=== PATIENT | female | born 1980 | race Caucasian/White ===

== ENCOUNTER → 2017-11-25 | Outpatient (REF) | payer BC | LOC: M LAB REF 08:56 | DX: Z12.4 Encounter for screening for malignant neoplasm of cervix (principal) | CPT/HCPCS: G0123 ==

== ENCOUNTER 2019-03-16 14:48 | Inpatient (IN) | payer BC, OTHER, SELFPAY ==
[~2019-03-16] VITALS: Ht 154.9 cm; Wt 85.5 kg
[~2019-03-16 14:48] MED LIST: ACYC400T PO; IBUP80TA PO; PNV-CAP5 PO
[2019-03-16] MEDS ORDERED: ACETAMINOPHEN TAB 650MG DOSE (2X325MG) PO PRN (15:00)
[2019-03-16] MEDS ORDERED: KETOROLAC 30 MG/ML VIAL (J1885) IV PRN (15:00)
[2019-03-16] MEDS ORDERED: ONDANSETRON 4MG/2ML VIAL (J2405) IV PRN (15:00)
[2019-03-16 18:21] VITALS: BP 164/102
[2019-03-16 18:22] VITALS: BP 138/70
[2019-03-16] MEDS: NS 1,000 ML IV SCH ×2 (18:30→22:55)
[2019-03-16] MEDS: PIPERACILLIN/TAZOBACTAM SOD 3.375 GM in D5W MINI-BAG PLUS 50 ML IV SCH (20:11)
[2019-03-16] MEDS: HEPARIN SOD (PORCINE) 5000 UNITS/ML VIAL SC SCH (22:00)
[2019-03-16 22:25] VITALS: BP 119/70
[2019-03-17] MEDS: PIPERACILLIN/TAZOBACTAM SOD 3.375 GM in D5W MINI-BAG PLUS 50 ML IV SCH ×4 (02:09→20:06)
[2019-03-17] MEDS: HEPARIN SOD (PORCINE) 5000 UNITS/ML VIAL SC SCH ×3 (05:51→21:01)
[2019-03-17 06:38] VITALS: BP 115/74
[2019-03-17] MEDS: NS 1,000 ML IV SCH ×3 (09:29→20:06)
[2019-03-17] MEDS: PANTOPRAZOLE 40MG INJ (PROTONIX) (C9113) IV SCH (09:30)
[2019-03-17 14:00] VITALS: BP_SYST 123; BP_SYST 131; BP_DIAS 76; BP_DIAS 81
--- NOTE | 2019-03-17 15:00 | HPEPDOC ---
General Surgery H&P Date of Admission Mar 16, 2019 Attending Physician: ALONDRA VELÁSQUEZ DO History and Physical CHIEF COMPLAINT: Lower abdominal pain HISTORY OF PRESENT ILLNESS: Sue is a 38-year-old female who was a direct admission after being transferred from [facility] with imaging findings suggestive of a small bowel obstruction. On Wednesday night into morning (03/15-03/16), patient reports she had concentrated lower midline abdominal pain and bloating with "nine to ten" episodes of non-bloody emesis and accompanying chills. Patient simply could not get comfortable throughout the night and did not sleep. She subsequently presented to the [facility] ED on morning where a CT abdomen/pelvis with IV contrast only showed findings suggestive of a small bowel obstruction. Per [place] [facility], patient's abdominal pain and bloating significantly improved throughout the day yesterday, and her last episode of emesis occurred around 0930 yesterday. Patient had reported pertinent lab findings at [place] of lactate of 2.4 and CO2 of 17. General surgery coverage at [place] ceases early this afternoon (03/17), so in the interest of good con tinuity of care, decision was made to transfer the patient to [facility] for continued evaluation and monitoring. Patient arrived to [facility] yesterday evening and NG tube was placed along with orders for NPO except sips and ice chips, Zosyn, Zofran, Toradol, Acetaminophen, and Protonix. Patient reports this morning that her current abdominal pain is 1/10 and that whenever her NG tube is detached so she can ambulate to the bathroom, she becomes nauseated. The nausea subsequently subsides when the NG tube is re-attached. Patient's last BM was "minimal" and occurred yesterday morning. She denies flatus but has had a few small burps. Patient is currently on her period and states that she has a history of menstrual cramps, but that her current symptom presentation is distinct and different to that of her typical dysmenorrhea presentation. Patient has never had this type of abdominal presentation before. 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 She denies recent illness other than an UTI in Jan 2019. She denies any recent change in medications. Patient's previous abdominal surgeries are one section and tubal ligation. Overall, the patient feels physically "drained." At this time, the patient denies fever, chills, night sweats, impaired cognition or confusion, chest pain, chest pressure, palpitations, sob, dysuria, or hematuria. ALLERGIES: Please see below. HOME MEDICATIONS: Please see below. PAST MEDICAL HISTORY: Dysmenorrhea PAST SURGICAL HISTORY: One section Tubal ligation Dilation and curettage PERSONAL/SOCIAL HISTORY: Patient is a high school science tutor REVIEW OF SYSTEMS: GENERAL: Denies fever, chills, night sweats CARDIOVASCULAR: Denies chest pain, chest pressure, or palpitations PULMONARY: [Denies chronic cough, dyspnea and wheezing]. GASTROINTESTINAL: Endorses lower abdominal pain and bloating; endorses feeling nauseated when disconnected from NG tube and ambulating; denies vomiting the past 24 hours, and denies hematemesis or coffee ground emesis when vomiting over the previous days GENITOURINARY: Denies dysuria or hematuria PHYSICAL EXAMINATION: VITAL SIGNS: Please see below. GENERAL APPEARANCE: Well-nourished, well-developed female who is pleasant and cooperative. She does not appear to be in acute distress of any kind. She is lying upright in bed at time of exam. She responds appropriately to questions and commands. HEENT: Normocephalic, atraumatic. Anicteric sclera. PERRLA. There is an NG tube present through the right [place]. There is currently about 80 mL of yellow colored fluid that has been suctioned by the tube. LUNGS: Clear to auscultation bilaterally, anteriorly and posteriorly. No wheezes, crackles, or rhonchi appreciated. Symmetric chest expansion. No retractions or accessory muscle use on respiration. Breathing on room air. HEART: Regular rate and rhythm, normal S1, S2. No murmurs, rubs, or clicks appre ciated. ABDOMEN: Soft and nondistended. Tenderness in the right lower quadrant, periumbilical area, and mid lower quadrant. There is no tympany or dullness to percussion. Normoactive bowel sounds are present. There is no guarding, rebound, or rigidity. SKIN: Warm and dry EXTREMITIES: Lower extremity edema, clubbing or cyanosis. 2+ radial and posterior tibial pulses bilaterally. NEUROLOGICAL: Awake, alert and oriented 3. No focal neurological deficits appreciated. LABORATORY DATA: Please see below. MICROBIOLOGY: Please see below. IMPRESSION AND PLAN: #Mechanical bowel obstruction versus ileus We continue to assess the patient as to the etiology of her abdominal pain and to correlate with imaging findings from CT abdomen and pelvis with IV contrast taken at [facility]. At this point, patient may have a mechanical bowel obstruction (likely secondary to adhesions) versus a nonfunctioning intestine/ileus versus gastroenteritis. The fact that patient's NG tube is suctioning off yellow colored fluid indicates it is likely coming from the stomach. From a general surgery standpoint, we are hopeful that if we continue with conservative management, patient will have resolution of symptoms without need for possible surgery. -Continue with IV fluids, antibiotics, and encouraging ambulation of the patient. -NG tube will remain in place as we continue to pursue conservative management -Diet will remain NPO with exception of sips and ice chips -Should the patient go 72 hours with no bowel movement or flatus, possibility of a diagnostic laparoscopy will be pursued. Vital Signs Vital Signs Date Time Temp Pulse Resp B/P (MAP) Pulse Ox O2 Delivery O2 Flow Rate FiO2 03/17/19 09:50 Room Air 03/17/19 06:38 97.6 92 20 115/74 (88) 96 I&Os I&O- Last 24 Hours up to 6 AM 03/17/19 06:00 Intake Total 225 ml Output Total 750 ml Balance -525 ml Home Medications No Active Prescriptions or Reported Meds Allergies Coded Allergies: No Known Allergies (Unverified , 01/16/13) A-FIB/CHADSVASC A-FIB History Current/History of A-Fib/PAF?: No Current PO Anticoag Therapy: No (patient receiving subcutaneous heparin for VTE prophylaxis while inpatient) VAZQUEZ LACKEY D.O. Mar 17, 2019 15:00
[2019-03-17 20:30] VITALS: BP 130/83
[2019-03-18] MEDS: PIPERACILLIN/TAZOBACTAM SOD 3.375 GM in D5W MINI-BAG PLUS 50 ML IV SCH ×2 (02:07→08:08)
[2019-03-18] MEDS: HEPARIN SOD (PORCINE) 5000 UNITS/ML VIAL SC SCH ×3 (06:00→20:14)
[2019-03-18 06:13] LABS: HEMATOCRIT 34.8 % (36.0-47.0); MEAN CORPUSCULAR HEMOGLOBIN 28.6 pg (27.0-33.0); MEAN CORPUSCULAR HGB CONC 31.6 g/dl (32.0-36.5); MEAN CORPUSCULAR VOLUME 90.6 fl (80.0-96.0); PLATELET COUNT, AUTOMATED 296 10^3/uL (150-450); RED BLOOD COUNT 3.84 10^6/uL (4.00-5.40); WHITE BLOOD COUNT 7.6 10^3/uL (4.0-10.0)
[2019-03-18 06:16] VITALS: BP 123/80
[2019-03-18 06:42] LABS: ALBUMIN 2.8 GM/DL (3.2-5.2); ALT/SGPT 20 U/L (12-78); BILIRUBIN,TOTAL 0.7 MG/DL (0.2-1.0); BLOOD UREA NITROGEN 12 MG/DL (7-18); CALCIUM LEVEL 8.4 MG/DL (8.5-10.1); CARBON DIOXIDE LEVEL 22 MEQ/L (21-32); CHLORIDE LEVEL 113 MEQ/L (98-107); CREATININE FOR GFR 0.79 MG/DL (0.55-1.30); GLOMERULAR FILTRATION RATE > 60.0 (>60); GLUCOSE, FASTING 91 MG/DL (70-100); POTASSIUM SERUM 3.6 MEQ/L (3.5-5.1); SODIUM LEVEL 145 MEQ/L (136-145); TOTAL PROTEIN 5.6 GM/DL (6.4-8.2)
[2019-03-18] MEDS: PANTOPRAZOLE 40MG INJ (PROTONIX) (C9113) IV SCH (08:08)
[2019-03-18] MEDS: NS 1,000 ML IV SCH ×2 (08:08→18:58)
--- NOTE | 2019-03-18 10:49 | REP ---
KUB ABDOMEN AND PELVIS: KUB film of abdomen and pelvis performed and compared to a prior CT from [facility] 03/16/2019. No dilated small bowel loops are seen radiographically. A small amount of air and fecal material scattered throughout the colon. Nasogastric tube is seen in the stomach. Electronically Signed by Theodore Sellers MD 03/18/2019 03:54 P
[2019-03-18 14:00] VITALS: BP 137/86
--- NOTE | 2019-03-18 16:58 | IPN ---
DATE: 03/18/2019 HISTORY: The patient was admitted as a transfer from [facility] on the afternoon of March 16. She had presented with mid abdominal pain and reportedly had a CT scan in [place] that showed some findings consistent with a bowel obstruction. She has an nasogastric (NG) tube in place. Vital signs show that she has been afebrile. Her pulse is in the 70s to 90s. Blood pressure is normal, and her room air oxygen saturations are normal. Intake and output yesterday showed 900 recorded in with 2500 out, 1300 mL that was listed as emesis, although on looking at the nurses notes, this would appear to have been NG output. She had another 450 recorded as gastric drainage and then 750 of urine output. She has had 650 recorded out from the NG overnight into this morning. PHYSICAL EXAMINATION: The patient is sitting quietly on the hospital bed with the NG tube in place. She has been taking some clear liquid sips, or rather sips of water, and some ice chips. The fluid in the NG container his quite watery today. She reports that it was greener yesterday. She is alert and oriented. Heart exam shows a regular rhythm. Lungs are clear. The abdomen is moderately obese and soft. She has bowel sounds present. There is no significant tenderness to palpation. Laboratory studies today show a white count of 8, hemoglobin of 11, hematocrit 35, and platelet count of 296,000. Chemistry profile showed normal electrolytes with the exception of a minimal elevation of the chloride to 113. IMPRESSION: The patient reports that she has not had a bowel movement and denies any flatus overnight. I did order a KUB today that showed minimal air in the large bowel, and no dilated small-bowel loops were seen. I think the patient's bowel obstruction, if in fact there was one, likely resolved. PLAN: I will clamp her NG tube today and otherwise let her continue her sips of water and ice chips and see how she tolerates this. If she tolerates this during the day, will pull her NG tube and start her on unlimited clear liquids. BRANDIE
[2019-03-18 22:26] VITALS: BP 136/84
[2019-03-19] MEDS: NS 1,000 ML IV SCH (05:02)
[2019-03-19] MEDS: HEPARIN SOD (PORCINE) 5000 UNITS/ML VIAL SC SCH (05:03)
[2019-03-19 06:59] VITALS: BP 130/90
[2019-03-19] MEDS: PANTOPRAZOLE 40MG INJ (PROTONIX) (C9113) IV SCH (08:58)
[2019-03-19] MEDS ORDERED: IBUPROFEN 400 MG TAB PO PRN (09:00)
[2019-03-19 14:00] VITALS: BP 137/89
--- NOTE | 2019-03-20 15:47 | IPN ---
DATE: 03/19/2019 History The patient is a patient of Dr. Kennedy who was admitted with apparently some abdominal pain and vomiting and CT evidence at [facility] of a small bowel obstruction. Her nasogastric (NG) tube was clamped yesterday morning and she had no problems with this overnight. The NG tube was removed this morning and she was started on clear liquids. Vital signs show that she has been afebrile with a pulse in the 70s, a normal blood pressure, and a normal room air oxygen saturation. Intake and output shows that she had 2308 in yesterday with 1700 out. She has had a brisk urine output today with 2200 mL out. She reports that she has still not passed any flatus or had a bowel movement. PHYSICAL EXAMINATION: The patient is lying quietly on the hospital bed. She is alert and oriented. Heart examination shows a regular rate and rhythm and she is not tachycardiac. The lungs are clear. The abdomen is mildly obese but soft and nontender. She has active bowel sounds. The patient had no new laboratories or imaging today. IMPRESSION: The patient is completely asymptomatic with her nasogastric (NG) tube clamped since yesterday and tolerating clear liquids well since this morning. I have advised her that there is no evidence for an obstruction at this point. She is somewhat troubled by the fact that she was told early on that the CT scan showed an obstruction and that she would need surgery but this has not come to pass. I tried to reassure her that there really are no signs that she is showing of any obstruction and that pain and nausea would be the things to watch for. We discussed her return to work and again she is very anxious about going back too soon and so we will plan on her returning to work on Wednesday03/22/2019. I will discharge her. She is not taking any pain medications so I will not provide any new prescriptions. She was advised that she can advance her diet as tolerated to regular. If there are any problems, she can contact our office for followup.
--- NOTE | 2019-03-20 20:08 | DSES ---
DATE OF ADMISSION: 03/16/2019 DATE OF DISCHARGE: 03/19/2019 ADMISSION DIAGNOSIS: Small bowel obstruction. DISCHARGE DIAGNOSIS: Small bowel obstruction. HISTORY OF PRESENT ILLNESS: The patient is a 38-year-old female who presented to [facility] with complaints of nausea, vomiting, lower abdominal pains. She was transferred here because they did not have a surgeon available. She showed up here late in the evening on 03/16/2019. I saw her on the morning of 03/17/2019. She still was not passing any gas or having any bowel movements. Abdomen was soft. NG output was minimal. Kept her on ice chips and sips of water overnight. Dr. Schuler saw her on the morning of 03/18/2019. She still was not passing flatus but she was still tolerating a liquids diet. He clamped her NG tube and kept her on a liquid diet and she tolerated that throughout the afternoon so the NG tube was removed in the afternoon of 03/18/2019 and she was advanced on her diet. The morning of 03/19/2019 she was passing gas and showing signs of improvement, so she was discharged home by Dr. Schuler on the afternoon of 03/19/2019. All of her questions were answered. If these symptoms return she will call us. Otherwise she can followup as needed. This was likely a non-mechanical bowel obstruction, possibly secondary to some small viral infection of some kind. If this becomes a recurrent issue then we will consider elective diagnostic laparoscopy in the future.
== END 2019-03-19 17:05 | disposition home or self-care (01) | DRG 247 ==
LOC: M MS5PR 17:55
PROVIDERS: ADMIT Surgery; ATTEND Surgery
DX: K56.699 Other intestinal obstruction unspecified as to partial versus complete obstruction (principal); N94.6 Dysmenorrhea, unspecified; A08.4 Viral intestinal infection, unspecified